=== PATIENT | male | born 1980 | race Caucasian/White ===

== ENCOUNTER 2023-12-05 13:20 | Emergency (ER) | payer MEDICARE, OTHER ==
[~2023-12-05] VITALS: Ht 177.8 cm; Wt 99.8 kg
[2023-12-05 13:51] LABS: BASOPHILS # (AUTO) 0.2 K/UL (0.0-0.2); BASOPHILS % (AUTO) 3.7 % (0.0-2.0); DIFFERENTIAL COMMENT 0; EOSINOPHILS # (AUTO) 0.2 K/uL (0.0-0.7); EOSINOPHILS % (AUTO) 2.5 % (0.0-7.0); HEMATOCRIT 40.4 % (36.7-47.1); HEMOGLOBIN 12.9 g/dL (12.5-16.3); LYMPHOCYTES # (AUTO) 1.2 K/uL (0.8-4.8); MEAN CORPUSCULAR HEMOGLOBIN 25.3 uug (23.8-33.4); MEAN CORPUSCULAR HGB CONC 32 g/dL (32.5-36.3); MONOCYTES # (AUTO) 0.4 K/uL (0.1-1.30); MONOCYTES % (AUTO) 6.2 % (0.0-11.0); NEUTROPHILS # (AUTO) 4.6 K/uL (1.8-8.9); NEUTROPHILS % (AUTO) 69.6 % (38.5-71.5); PLATELET COUNT (AUTO) 186 K/uL (152-348); RED BLOOD CELL COUNT(AUTO) 5.11 MIL/uL (4.06-5.63); RED CELL DISTRIBUTION WIDTH 18.7 % (12.1-16.2); WHITE BLOOD COUNT (AUTO) 6.7 K/uL (3.6-10.2)
[2023-12-05 13:57] LABS: CALCIUM 8.8 mg/dL (8.5-10.1); CARBON DIOXIDE 24 mmol/L (21-32); CHLORIDE 101 mmol/L (98-107); CREATININE 0.8 mg/dL (0.6-1.3); GLUCOSE 98 mg/dL (74-106); POTASSIUM 3.4 mmol/L (3.5-5.1); SODIUM SERUM 137 mmol/L (136-145); UREA NITROGEN, BLOOD 11 mg/dL (7-18)
[2023-12-05] MEDS ORDERED: ACET-73 PO (14:00)
[2023-12-05] MEDS ORDERED: VALP250S3 PO (14:00)
[2023-12-05] MEDS ORDERED: ARIP20TA4 PO (14:00)
[2023-12-05] MEDS ORDERED: CLON1TAB12 PO (14:00)
[2023-12-05] MEDS ORDERED: QUET200T PO (14:00)
[2023-12-05] MEDS ORDERED: HALO5TAB PO (14:00)
[2023-12-05] MEDS ORDERED: CHLO100T17 PO (14:00)
[2023-12-05] MEDS ORDERED: DOCU100C36 PO (14:00)
[2023-12-05] MEDS ORDERED: LEVO75TA7 PO (14:00)
[2023-12-05] MEDS ORDERED: PALIPERIDONE (14:00)
[2023-12-05] MEDS ORDERED: SENN8.6T19 PO (14:00)
[2023-12-05] MEDS ORDERED: HALO100A4 IM (14:00)
[2023-12-05] MEDS ORDERED: GEMF600T90 PO (14:00)
[2023-12-05] MEDS ORDERED: LAMO25TA5 PO (14:00)
[2023-12-05] MEDS ORDERED: ATIVAN IM (14:00)
[2023-12-05] MEDS ORDERED: POLY250017 PO (14:00)
[2023-12-05] MEDS ORDERED: LISI10TA29 PO (14:00)
[2023-12-05] MEDS ORDERED: PANT40TA49 PO (14:00)
[2023-12-05 14:02] LABS: ETHANOL < 3 MG/DL (0-10)
[2023-12-05 14:03] LABS: ALANINE AMINOTRANSFERASE 14 U/L (16-63); ALBUMIN 3.7 g/dL (3.4-5.0); ALKALINE PHOSPHATASE 75 U/L (50-136); ASPARTATE AMINOTRANSFERASE 10 U/L (15-37); BILIRUBIN,DIRECT 0.1 mg/dL (0.0-0.2); BILIRUBIN,TOTAL 0.4 mg/dL (0.2-1.0); TOTAL PROTEIN, SERUM 7.1 g/dL (6.4-8.2)
[2023-12-05 14:15] LABS: ACETAMINOPHEN < 2.0 ug/mL (10-30)
[2023-12-05] MEDS: LORAZEPAM 2 MG/1 ML VIAL IM ONE (17:15)
[2023-12-05] MEDS: HALOPERIDOL LACTATE 5 MG/1 ML VIAL IM ONE (17:15)
[2023-12-05] MEDS ORDERED: LORAZEPAM 1 MG TABLET ONE (19:10)
[2023-12-05 19:13] VITALS: BP 121/68; O2SAT 98
[2023-12-05] MEDS ORDERED: LORAZEPAM 0.5 MG TABLET PO ONE (19:15)
[2023-12-05 20:00] LABS: *BILIRUBIN,URIN NEGATIVE (NEGATIVE); *BLOOD, URINE NEGATIVE (NEGATIVE); *CLARITY,URINE CLEAR (CLEAR); *COLOR,URINE YELLOW (YELLOW); *KETONES,URINE NEGATIVE (NEGATIVE); *PROTEIN,URINE NEGATIVE (NEGATIVE); *UROBILINOGEN,URINE 0.2 E.U./dl (NORMAL); LEUKOCYTE ESTERASE ,URINE NEGATIVE (NEGATIVE); NITRITE, URINE NEGATIVE (NEGATIVE); UGLUCOSE NEGATIVE (NEGATIVE)
[2023-12-05 20:15] LABS: *AMPHETAMINE, URINE NEGATIVE (NEGATIVE); *BARBITURATE, URINE NEGATIVE (NEGATIVE); *BENZODIAZEPINE, URINE NEGATIVE (NEGATIVE); *CANNABINOID, URINE NEGATIVE (NEGATIVE); *COCCAINE, URINE NEGATIVE (NEGATIVE); *OPIATE, URINE NEGATIVE (NEGATIVE); *PHENCYCLIDINE SCREEN,URINE NEGATIVE (NEGATIVE); FENTANYL, URINE NEGATIVE (NEGATIVE)
== END 2023-12-05 19:14 ==
LOC: ER 13:20
DX: F20.9 Schizophrenia, unspecified (principal); R45.1 Restlessness and agitation; F91.1 Conduct disorder, childhood-onset type; K21.9 Gastro-esophageal reflux disease without esophagitis; F31.9 Bipolar disorder, unspecified; Z79.1 Long term (current) use of non-steroidal anti-inflammatories (NSAID); Z79.899 Other long term (current) drug therapy; Z20.822 Contact with and (suspected) exposure to COVID-19
CPT/HCPCS: 36415; 85025; A4606; A4663; G0480